=== PATIENT | male | born 1965 | race Asian ===

== ENCOUNTER → 2019-02-02 09:24 | Outpatient (CLI) | payer OTHER, SELFPAY ==
[2019-02-02 10:55] LABS: BUN Creatinine Ratio 16.7 (6-22); Blood Urea Nitrogen 15 mg/dL (9-20); Calcium 9.8 mg/dL (8.4-10.2); Carbon Dioxide 27 mmol/L (22-32); Chloride 103 mmol/L (98-107); Cholesterol 185 mg/dL (140-199); Estimated Glomerular Filt Rate > 60.0 mL/min (>60); Glucose 116 mg/dL (70-100); HDL Cholesterol 35 mg/dL (40-60); HEMOLYSIS < 15 (0-50); LDL Cholesterol Calculated 123 mg/dL (<100); Potassium 4.6 mmol/L (3.4-5.1); Sodium 138 mmol/L (137-145); Triglycerides 137 mg/dL (35-150)
== END ==
PROVIDERS: PCP Student in an Organized Health Care Education/Training Program; Visit Provider Student in an Organized Health Care Education/Training Program
DX: E78.2 Mixed hyperlipidemia (principal); I10 Essential (primary) hypertension; E55.9 Vitamin D deficiency, unspecified
CPT/HCPCS: 36415; 80048; 80061; 82306

== ENCOUNTER → 2020-02-09 09:34 | Outpatient (CLI) | payer OTHER, SELFPAY ==
[2020-02-09 13:14] LABS: BUN Creatinine Ratio 22.3 (6-22); Blood Urea Nitrogen 23 mg/dL (9-20); Calcium 9.8 mg/dL (8.4-10.2); Carbon Dioxide 28 mmol/L (22-32); Chloride 98 mmol/L (98-107); Estimated Glomerular Filt Rate > 60.0 mL/min (>60); Glucose 106 mg/dL (70-100); HEMOLYSIS < 15 (0-50); Potassium 4.8 mmol/L (3.4-5.1); Sodium 136 mmol/L (137-145)
[2020-02-09 13:43] LABS: Prostate Specific Antigen Scrn 6.95 ng/mL (0.1-4.0)
[2020-02-09 16:14] LABS: Vitamin D 25 Hydroxy (D3) 24.5 ng/mL (30.0-100.0)
== END ==
PROVIDERS: PCP Student in an Organized Health Care Education/Training Program; Referring Provider Student in an Organized Health Care Education/Training Program; Visit Provider Student in an Organized Health Care Education/Training Program
DX: I10 Essential (primary) hypertension (principal); Z12.5 Encounter for screening for malignant neoplasm of prostate; E55.9 Vitamin D deficiency, unspecified
CPT/HCPCS: 36415; 80048; 82306; G0103

== ENCOUNTER → 2020-04-04 10:52 | Outpatient (CLI) | payer OTHER, SELFPAY ==
[2020-04-04 12:29] LABS: Prostate Specific Antigen 4.52 ng/mL (0.10-4.00)
== END ==
PROVIDERS: PCP Student in an Organized Health Care Education/Training Program; Referring Provider Student in an Organized Health Care Education/Training Program; Visit Provider Student in an Organized Health Care Education/Training Program
DX: R97.20 Elevated prostate specific antigen [PSA] (principal)
CPT/HCPCS: 36415; 84153

== ENCOUNTER → 2021-04-30 14:05 | Outpatient (CLI) | payer OTHER, SELFPAY ==
[2021-04-30 16:36] LABS: BUN Creatinine Ratio 13.4 (6-22); Blood Urea Nitrogen 13 mg/dL (9-20); Calcium 9.8 mg/dL (8.4-10.2); Carbon Dioxide 25 mmol/L (22-32); Chloride 100 mmol/L (98-107); Estimated Glomerular Filt Rate > 60.0 mL/min (>60); Glucose 97 mg/dL (70-100); HEMOLYSIS < 15 (0-50); Potassium 4.3 mmol/L (3.4-5.1); Sodium 134 mmol/L (137-145)
[2021-04-30 16:47] LABS: Add Manual Diff / Slide Review NO; Basophils Absolute Auto 100 /uL (0-100); Basophils Percent Auto 0.6 % (0-2); Eosinophils Absolute Auto 200 /uL (0-450); Eosinophils Percent Auto 2.6 % (2-4); Hematocrit 44.8 % (41-53); Hemoglobin 15.4 g/dL (13.5-17.5); Lymphocytes Absolute Auto 2200 /uL (1100-4500); Lymphocytes Percent Auto 24.2 % (25-40); Mean Corpuscular HGB Conc 34.3 % (30-36); Mean Corpuscular Hemoglobin 28.2 PG (26-34); Mean Corpuscular Volume 82.3 fL (80-100); Monocytes Absolute Auto 600 /uL (0-900); Neutrophils Absolute Auto 6000 /uL (1500-7000); Neutrophils Percent Auto 65.6 % (50-75); Platelet Count 222 X10^3/uL (150-400); Red Blood Cell Count 5.44 X10^6/uL (4.5-5.9); Red Cell Distribution Width 13.8 % (11.6-14.8); White Blood Cell Count 9.2 X10^3/uL (4.5-11.0)
[2021-04-30 16:59] LABS: Vitamin D 25 Hydroxy (D3) 40.9 ng/mL (30.0-100.0)
[2021-04-30 17:08] LABS: Prostate Specific Antigen Scrn 5.68 ng/mL (0.1-4.0)
== END ==
PROVIDERS: PCP Student in an Organized Health Care Education/Training Program; Referring Provider Student in an Organized Health Care Education/Training Program; Visit Provider Student in an Organized Health Care Education/Training Program
DX: E55.9 Vitamin D deficiency, unspecified (principal); E78.2 Mixed hyperlipidemia; I10 Essential (primary) hypertension; R97.20 Elevated prostate specific antigen [PSA]; Z12.5 Encounter for screening for malignant neoplasm of prostate
CPT/HCPCS: 36415; 80048; 82306; 85025; G0103

== ENCOUNTER → 2021-05-30 14:02 | Outpatient (CLI) | payer OTHER, SELFPAY ==
[2021-05-31 10:36] LABS: Fecal Immunochemical Test Negative (Negative)
== END ==
PROVIDERS: PCP Student in an Organized Health Care Education/Training Program; Referring Provider Student in an Organized Health Care Education/Training Program; Visit Provider Student in an Organized Health Care Education/Training Program
DX: Z12.11 Encounter for screening for malignant neoplasm of colon (principal)
CPT/HCPCS: 82274

== ENCOUNTER → 2021-11-20 11:52 | Outpatient (CLI) | payer OTHER, SELFPAY ==
[2021-11-20 14:29] LABS: Prostate Specific Antigen 5.59 ng/mL (0.10-4.00)
== END ==
PROVIDERS: PCP Student in an Organized Health Care Education/Training Program; Referring Provider Student in an Organized Health Care Education/Training Program; Visit Provider Student in an Organized Health Care Education/Training Program
DX: R97.20 Elevated prostate specific antigen [PSA] (principal)
CPT/HCPCS: 36415; 84153

== ENCOUNTER → 2022-05-30 15:18 | Outpatient (CLI) | payer OTHER, SELFPAY ==
[2022-05-30 15:57] LABS: BUN Creatinine Ratio 16.5 (6-22); Blood Urea Nitrogen 16 mg/dL (9-20); Calcium 8.8 mg/dL (8.4-10.2); Carbon Dioxide 28 mmol/L (22-32); Chloride 97 mmol/L (98-107); Cholesterol 172 mg/dL (140-199); Estimated Glomerular Filt Rate > 60 mL/min (>60); Glucose 95 mg/dL (70-100); HDL Cholesterol 33 mg/dL (40-60); HEMOLYSIS 38 (0-50); LDL Cholesterol Calculated 113 mg/dL (<100); Potassium 3.7 mmol/L (3.4-5.1); Sodium 137 mmol/L (137-145); Triglycerides 131 mg/dL (35-150)
[2022-05-30 16:27] LABS: Prostate Specific Antigen 6.92 ng/mL (0.10-4.00)
== END ==
PROVIDERS: PCP Student in an Organized Health Care Education/Training Program; Referring Provider Student in an Organized Health Care Education/Training Program; Visit Provider Student in an Organized Health Care Education/Training Program
DX: E78.2 Mixed hyperlipidemia (principal); I10 Essential (primary) hypertension; R97.20 Elevated prostate specific antigen [PSA]
CPT/HCPCS: 36415; 80048; 80061; 84153

== ENCOUNTER → 2022-07-11 07:31 | Outpatient (CLI) | payer OTHER, SELFPAY ==
--- NOTE | 2022-07-11 07:33 | DI.RAD.S_ITS ---
PROCEDURE: XR KNEE RT 3V INDICATIONS: right knee pain TECHNIQUE: 3 views of the knee were acquired. COMPARISON: None. FINDINGS: Bones: No fractures or dislocations. No suspicious bony lesions. There is moderate to severe tricompartmental osteoarthritic type degenerative change involving the patient's right knee with patellofemoral joint being most severely affected. Soft tissues: No joint effusion. No suspicious soft tissue calcifications. IMPRESSION: Moderate to severe tricompartmental osteoarthritic degenerative change involving the right knee with patellofemoral joint most severely affected. Dictated by: Stuart Medeiros M.D. on 07/11/2022 at 8:22 Approved by: Stuart Medeiros M.D. on 07/11/2022 at 8:23
[2022-07-12 16:43] LABS: Fecal Immunochemical Test Negative (Negative)
== END ==
PROVIDERS: PCP Student in an Organized Health Care Education/Training Program; Referring Provider Student in an Organized Health Care Education/Training Program; Visit Provider Student in an Organized Health Care Education/Training Program
DX: M17.11 Unilateral primary osteoarthritis, right knee (principal); M25.561 Pain in right knee; Z12.11 Encounter for screening for malignant neoplasm of colon
CPT/HCPCS: 73562; 82274

== ENCOUNTER → 2023-03-28 09:58 | Outpatient (CLI) | payer OTHER, SELFPAY ==
[2023-03-28 10:59] LABS: Add Manual Diff / Slide Review NO; Basophils Absolute Auto 0 /uL (0-100); Basophils Percent Auto 0.6 % (0-2); Eosinophils Absolute Auto 200 /uL (0-450); Eosinophils Percent Auto 3.2 % (2-4); Hematocrit 43.9 % (41-53); Hemoglobin 14.6 g/dL (13.5-17.5); Lymphocytes Absolute Auto 1600 /uL (1100-4500); Lymphocytes Percent Auto 21.7 % (25-40); Mean Corpuscular HGB Conc 33.3 % (30-36); Mean Corpuscular Volume 83.8 fL (80-100); Monocytes Absolute Auto 400 /uL (0-900); Monocytes Percent Auto 5.5 % (3-14); Neutrophils Absolute Auto 5000 /uL (1500-7000); Platelet Count 246 X10^3/uL (150-400); Red Blood Cell Count 5.24 X10^6/uL (4.5-5.9); White Blood Cell Count 7.2 X10^3/uL (4.5-11.0)
[2023-03-28 11:05] LABS: Appearance Urine UA CLEAR; Bilirubin Urine UA NEGATIVE (NEGATIVE); Color Urine UA YELLOW; Glucose Urine UA NEGATIVE (Negative); Ketones Urine UA NEGATIVE (NEGATIVE); Leukocyte Esterase Urine UA NEGATIVE (NEGATIVE); Nitrite Urine UA NEGATIVE (Negative); Occult Blood Urine UA 1+ (Negative); Protein Urine UA NEGATIVE (Negative); Specific Gravity Urine UA 1.015 (1.000-1.035); Urobilinogen Urine UA 0.2 E.U./dL (0.2)
[2023-03-28 11:13] LABS: Bacteria Urine None Seen; RBC Urine 0-1/HPF (0-5/HPF); Squamous Epithelial Cell Urine None Seen (0-5/HPF); WBC Urine None Seen (0-5/HPF)
[2023-03-28 11:14] LABS: Culture Indicated Urine Cult Not Indicated
[2023-03-28 11:28] LABS: Alanine Aminotransferase 66 IU/L (<50); Albumin 4.3 g/dL (3.5-5.0); Albumin Globulin Ratio 1.2 (1.0-2.8); Alkaline Phosphatase 51 U/L (38-126); Aspartate Aminotransferase 49 IU/L (17-59); BUN Creatinine Ratio 16.3 (6-22); Bilirubin Total 0.8 mg/dL (0.2-1.3); Blood Urea Nitrogen 16 mg/dL (9-20); Calcium 9.5 mg/dL (8.4-10.2); Carbon Dioxide 28 mmol/L (22-32); Chloride 100 mmol/L (98-107); Estimated Glomerular Filt Rate > 60 mL/min (>60); Globulin 3.5 g/dL (1.7-4.1); Glucose 118 mg/dL (70-100); HEMOLYSIS < 15 (0-50); Potassium 3.8 mmol/L (3.4-5.1); Sodium 137 mmol/L (137-145); Total Protein 7.8 g/dL (6.3-8.2)
[2023-04-01 06:42] LABS: PSA Free % 16.9 % (.); PSA, Total 3.2 ng/mL (0.0-4.0)
== END ==
PROVIDERS: PCP Family Medicine; Referring Provider Family Medicine; Visit Provider Family Medicine
DX: R97.20 Elevated prostate specific antigen [PSA] (principal); I10 Essential (primary) hypertension; E78.2 Mixed hyperlipidemia
CPT/HCPCS: 36415; 80053; 81001; 84153; 84154; 85025

== ENCOUNTER → 2023-07-08 08:10 | Outpatient (CLI) | payer OTHER, SELFPAY ==
[2023-07-08 08:55] LABS: Add Manual Diff / Slide Review NO; Basophils Absolute Auto 0 /uL (0-100); Basophils Percent Auto 0.6 % (0-2); Eosinophils Absolute Auto 200 /uL (0-450); Eosinophils Percent Auto 2.2 % (2-4); Hematocrit 45.8 % (41-53); Hemoglobin 15.6 g/dL (13.5-17.5); Lymphocytes Absolute Auto 1400 /uL (1100-4500); Lymphocytes Percent Auto 17.1 % (25-40); Mean Corpuscular Hemoglobin 28.4 PG (26-34); Mean Corpuscular Volume 83.7 fL (80-100); Monocytes Absolute Auto 600 /uL (0-900); Monocytes Percent Auto 7.3 % (3-14); Neutrophils Absolute Auto 6100 /uL (1500-7000); Neutrophils Percent Auto 72.8 % (50-75); Platelet Count 251 X10^3/uL (150-400); Red Blood Cell Count 5.47 X10^6/uL (4.5-5.9); Red Cell Distribution Width 13.5 % (11.6-14.8); White Blood Cell Count 8.4 X10^3/uL (4.5-11.0)
[2023-07-08 09:05] LABS: BUN Creatinine Ratio 16.7 (6-22); Blood Urea Nitrogen 15 mg/dL (9-20); Carbon Dioxide 25 mmol/L (22-32); Chloride 101 mmol/L (98-107); Estimated Glomerular Filt Rate > 60 mL/min (>60); Glucose 140 mg/dL (70-100); HEMOLYSIS < 15 (0-50); Sodium 134 mmol/L (137-145)
[2023-07-08 09:06] LABS: Hemoglobin A1C% w Est Avg Glu 6.7 % (4.0-6.0)
== END ==
LOC: RESP 08:12
PROVIDERS: PCP Family Medicine; Referring Provider Orthopaedic Surgery Foot and Ankle Surgery; Visit Provider Orthopaedic Surgery Foot and Ankle Surgery
DX: Z01.818 Encounter for other preprocedural examination (principal); Z01.812 Encounter for preprocedural laboratory examination; R73.9 Hyperglycemia, unspecified
CPT/HCPCS: 36415; 80048; 83036; 85025; 93005

== ENCOUNTER → 2023-09-02 12:06 | Outpatient (CLI) | payer OTHER, SELFPAY ==
[2023-09-03 10:10] LABS: Fecal Immunochemical Test Positive (Negative)
== END ==
LOC: LAB 12:15
PROVIDERS: PCP Family Medicine; Referring Provider Family Medicine; Visit Provider Family Medicine
DX: Z12.11 Encounter for screening for malignant neoplasm of colon (principal)
CPT/HCPCS: 82274

== ENCOUNTER 2023-09-03 06:32 | Day surgery (SDC) | payer OTHER, SELFPAY ==
[2023-08-25 08:22] VITALS: BMI 37.1
[2023-09-03] VITALS (9 sets, daily range): BP systolic 97–138; BP diastolic 35–80; PULSE 73–91; RESP 10–19; TEMP 36.6–36.9; O2SAT 93–99; BMI 37.1
--- NOTE | 2023-09-03 06:00 | DI.RAD.S_ITS ---
PROCEDURE: XR KNEE RT 1TO2V INDICATIONS: TKA TECHNIQUE: 2 view(s) of the knee acquired. COMPARISON: [facility], , XR KNEE RT 3V, 07/11/2022, 7:29. FINDINGS: Bones: Patient is status post knee joint arthroplasty. Hardware components are in expected positions. Visualized bony structures are intact. Soft tissues: Overlying postoperative changes are noted. IMPRESSION: Expected immediate postoperative appearance, status post total right knee arthroplasty. Dictated by: Neel Carrera M.D. on 09/03/2023 at 11:41 Approved by: Neel Carrera M.D. on 09/03/2023 at 11:42
[2023-09-03] MEDS: CELECOXIB 200 MG CAPSULE 400 MG PO (07:07)
[2023-09-03] MEDS: LACTATED RINGERS 1,000 ML 42 ML IV ×2 (07:07→10:00)
[2023-09-03] MEDS: ACETAMINOPHEN 325 MG TABLET 975 MG PO (07:08)
--- NOTE | 2023-09-03 07:20 | SUR.OPER ---
Supine on padded OR bed. Pillow under head, arms secured on padded armboards <90 degree abduction. Safety belt across torso. Non-operative leg secured with tape over blanket over lower leg. Operative leg secured in DeMayo/Paul/Nathe positioner. Foam padded brace at thigh of operative leg.
--- NOTE | 2023-09-03 07:23 | PM.PREOP ---
Pre-operative Note Interval Note History & Physical reviewed/Exam performed by Physician: Yes Changes to H&P: No
--- NOTE | 2023-09-03 07:41 | PM.OP.1 ---
Operative Date/Time/Diagnoses Date of procedure: 09/03/23 Time of procedure: 08:10 Pre-op diagnosis: Right knee arthritis Post-op diagnosis: same Procedure & Clinicians Procedure: Right total knee arthroplasty [id number] Robotic assisted surgery Computer navigation assisted surgery. Same procedure as scheduled: Yes Indications: The patient has significant pain associated with osteoarthritis of the right knee. It is associated with morning stiffness. Pain interferes with daily normal function including ambulation standing and any activities that are weight-bearing. It interferes with sleep. There is crepitation with range of motion. There is marked joint line tenderness. X-rays show significant levels of osteoarthritis. Double attempted previous conservative treatment has been rendered. The patient has failed exercise program, medications and previous injections. Patient is indicated for total knee arthroplasty. The risks and benefits of the procedure have been discussed with the patient and given the opportunity to ask questions. The risks of surgery include but are not limited to infection, malunion, nonunion, persistence of pain, damage to nerves and blood vessels, posttraumatic arthritis, DVT, PE, cardiopulmonary complications and . The patient expressed a thorough understanding of the risks and benefits of surgery and has elected to proceed. Consent was signed. During the operation, the services of a physician surgical sales representative were medically indicated and necessary to provide the exposure of the operative site for the surgical procedure and to maintain the limb in a proper position to carry out the operation safely and efficiently. Without a qualified anesthetic assistant being present this would extended the operative procedure and made the procedure technically more difficult to perform. Surgeon: Lucy Rojas Sociocultural Anthropology Professor: Brijesh Wilson Anesthesia Type: Spinal and Peripheral nerve block Operative Notes Findings: End-stage tricompartmental knee arthritis right knee, prominent tibial tubercle from Dysart-Schlatter's Closure Type: primary Prosthetic devices, grafts, tissues, transplants, or devices: Rodriguez and Nephew journey 2 bCS total knee arthroplasty Femur Oxinium 7 Tibia 6 Poly 9 mm Patella 35 x 9 mm Estimated Blood Loss (mL): 100 Blood products transfused: none Tourniquet time (min): 120 Procedure in detail: Patient was seen in the preoperative area where the patient and site of surgery were identified in the operative knee was marked informed consent confirmed. This was the right knee. Patient received the appropriate preoperative antibiotics this was 2 g of Ancef. And other preoperative medications including tranexamic acid and was taken to the operating room placed on operating table in the supine position. Spinal anesthetic were administered. The operative extremity was then prepped and draped in the standard sterile fashion with a nonsterile tourniquet high on the thigh. Patient was placed on the green foam bolsters. A lateral post was placed at the level of the proximal thigh /trochanter area as a lateral post. Formal time-out procedure was performed confirming the patient's side and site of surgery and administration of appropriate preoperative antibiotics and implants were in the room accounted for. All were in agreement. Patient received a preoperative dose of tranexamic acid and then a 2nd dose at tourniquet release Patient was prepped and draped in the standard sterile fashion and the foot was placed into the leg hanson. This was taken into high flexion and the incision was marked out over the anterior knee to the level of the medial tubercle tubercle. The Esmarch was then used for exsanguination and the tourniquet was inflated to 250 mmHg. Was made through the skin and subcutaneous tissue in high flexion this was then brought down into 30? of flexion for the medial parapatellar arthrotomy. A marker pen was used to primo the arthrotomy site for later repair. Joint fluid was evacuated. The anterior osteophytes and soft tissues were removed. Routine medial release was initially made along the medial proximal tibia with Bovie. The patella was 1st cut using the saw sized and prepped and then subluxed throughout the case and protected. This patient was noted to have very large Dysart-Schlatter's lesion as well as extensive inferior osteophytes on the distal patella. The leg was then taken into extension and the patella was everted and the patella was cut to accommodate the patellar button. This was sized to a 35 mm button for a denies mm thickness to recreate the original dimensions of the patella. Poly was removed and the protector replaced and the patella was subluxed and the knee was taken back up into flexion and attention was returned to the femur. Then the rotational landmarks of Whitesides line and the trans epicondylar axis were marked on the femur with electrocautery. ACL and PCL were released. Then the Cori robotic pins were placed into the femur and tibia and the race set up. Landmarks were established and the robotic planning was commenced. Plan was developed and improved and adjusted as necessary to create a balanced knee. Plan was adjusted to a 2 mm balance and flexion and extension. Plan was satisfactory the bur was used to remove the distal femur. The initial bearing removed just a sliver of distal lateral femoral condyle and the knee was tested after tibial cut with the extension block and found to be tight. The balanced in flexion. Additional 2 mm were then taken off with the bur by adjusting the computer navigation robotic plan. Once this was complete and the extension block and flexion blocks checked and balanced and he was taken to extension local injection was injected to the posterior capsule on the medial side and the remainder of the menisci were excised. Then the 5 in 1 cutting block was applied complete the femur cuts. Attention was then turned to the tibia and the tibial resection was made in accordance with the robotic planning. As described above. Additional rongeur was used to clean up osteophytes around the medial and lateral tibia. Of note again was the prominent Venecia-Schlatter's lesion anteriorly. This was protected. The trials were placed. And the femoral notch was cut a standard fashion using Reamer then slap hammer. The knee was trialed and the checked. Knee was balanced in flexion extension. Range of motion 0-130 degrees was obtained. The rotation femoral trial was marked Bovie on the bone and checked with a long levi. The tibia was then finished with a drill and flange cut and then The trial implants were removed. Then in extension the posterior capsule was injected with a mixture of 40 mL of 0.25% Marcaine and 20 mL of Exparel care to avoid excessive injection posterior laterally. The remainder of this was saved for the capsule and subcutaneous tissue and placed during cement curing. The wound and bone was irrigated with pulsatile lavage. This was then dried with a sponge. The components were verified and opened and the cement was mixed. Cement was applied to the components and then to the bone then the tibia was cemented in place 1st followed by the femur then the patella. Excess cement was removed. With care looking around the back of the knee. Remainder of the injection was injected around the capsule. trial poly was placed back in the leg was placed into extension for the patellar cementing. After this was cured approximately 15 minutes later and the dilute Betadine solution was placed for at least 3 minutes in the wound this was then irrigated out and the final poly was placed. This was a 9 mm poly. The tourniquet was released hemostasis was achieved. There was noted to be a slight lateral tilt of the patella so a lateral release was performed with normal patellar tracking symmetric within the groove after this was completed. Final 1g of tranexamic acid was given IV at the time of tourniquet release. The capsule was closed with 1. Ethibond suture. Followed by a running Quill stitch. Subcutaneous layer was closed with 3-0 Vicryl suture. Skin was closed with a running V lock suture Stratafix Monocryl type suture and Dermabond. An Aquacel dressing was placed . An Blair wrap was applied. Anesthetic was terminated the patient was woken from anesthesia and taken to recovery room in good condition. There no immediate complications from this procedure. The patient will be maintained on a standard total knee replacement protocol with weight-bearing as tolerated. Complications: none Post-operative Condition: stable Disposition: PACU Plan for aftercare: Weightbear as tolerated. Immediate knee range of motion and standard postoperative knee therapy program. We will use aspirin 81 mg b.i.d. for DVT prophylaxis for 6 weeks postop. We will follow up in 2 weeks for a wound check with the physician anesthetic assistant and at 6 weeks with the surgeon.
[2023-09-03] MEDS: CEFAZOLIN 2 GM/100 ML PREMIX 100 ML IV (07:55)
[2023-09-03] MEDS: TRANEXAMIC ACID 1,000 MG VIAL 1000 MG INJ ×2 (08:00→10:34)
[2023-09-03] MEDS: BUPIVACAINE 0.25% (PF) 60 ML, EPINEPHrine 0.3 MG INJ (08:27)
[2023-09-03] MEDS: BUPIVACAINE LIPOSOME 266 MG/20 ML VIAL INJ (08:27)
[2023-09-03] MEDS: OXYCODONE IR 5 MG TABLET PO (11:41)
--- NOTE | 2023-09-03 13:18 | SUR.PHASEII ---
Pt dressed, resting in bed with knee elevated and ice on. SCD on. Eating lunch. Waiting for PT. at bedside.
--- NOTE | 2023-09-03 14:00 | PT.IIE ---
Current Diagnoses Unilateral primary osteoarthritis, right knee (09/03/23) Surgery Performed Operation Date: 09/03/23 07:45 Actual Procedures p Total Knee Arthroplasty - Robot(Right) - Lucy Rojas MD Surgical History (Last Updated 08/25/23 @ 09:08 by Saloni Coates RN) H/O vasectomy History of photorefractive keratectomy (PRK) Medical History (Last Updated 08/25/23 @ 09:13 by Saloni Coates RN) Arthritis History of COVID-19 (~2020) Hypertension (~2008) Knee pain Mixed hyperlipidemia Venecia-Schlatter's disease Shoulder pain (~2016) Sleep apnea (~2008) Tricompartment osteoarthritis of right knee Vitamin D insufficiency Physical Therapy Inpatient Evaluation/Re-Eval M1 PT/OT-IP Prior Functional Status Start: 09/03/23 15:27 Freq: NEEDED Status: Discharge Protocol: Document 09/03/23 14:00 AB (Rec: 09/03/23 15:40 AB [id number]) Medical Review Prior Functional Status Medical History Reviewed Yes Communication able to make needs known Mobility and Gait pt stated that he was independent with all mobilities and ambulation without AD Social History Household Members spouse,children Living Arrangements House Number of Floors (Floors) 3 or More Floors Number of Stairs To Enter/Railing? 6 steps B rails to enter the house 7+landing +7 steps R rail ascending to get to bedroom level; pt stated that he plans to stay on the main level for a few days Home Environment Standard Height Toilet,Walk in Shower Home Equipment Four Wheel Walker,Shower Seat with Backrest,Hand Held Shower Additional Social History Comment pt has his spouse and adult daughter to assist him if needed. M2 PT-IP Current Condition Start: 09/03/23 15:27 Freq: NEEDED Status: Discharge Protocol: Document 09/03/23 14:00 AB (Rec: 09/03/23 15:40 AB [id number]) Physical Therapy Current Condition Current Condition Evaluation Date 09/03/23 Treatment Diagnosis s/p R TKA; difficulty in walking Onset Date 09/03/23 M3 PT-IP Subjective Start: 09/03/23 15:27 Freq: NEEDED Status: Discharge Protocol: Document 09/03/23 14:00 AB (Rec: 09/03/23 15:40 AB [id number]) Subjective Physical Therapy Visit Type Type Initial Evaluation Visit Start Time 14:00 Visit Stop Time 15:15 Number of ROOF SLATER Visits 0 Physical Therapy Visit Comments Patient Comments agreeable to do PT Therapy Pain Assessment Pain When Pain Assessed At Rest Pain Present Pain Present Pain Reported Location right knee Intensity 4 Scale Used Numeric (0 - 10) Pain Management Techniques Distraction,Modification of Treatment,Re-positioning, Timing of Activity with Medications M4 PT-IP Mobility and Gait Start: 09/03/23 15:27 Freq: NEEDED Status: Discharge Protocol: Document 09/03/23 14:00 AB (Rec: 09/03/23 15:40 [id number]) PT-Bed Mobility Assessment Supine to Sit Supine to Sit Standby Assistance Sit to Supine Sit to Supine Standby Assistance PT-Transfer Assessment Sit to and From Stand Sit to and from Stand Contact Guard Assistance,1 Person Assistance,Use of Upper Extremities Equipment Transfer Assistive Device Gait Belt,Front Wheeled Walker ,4 Wheeled Walker Orthotic/Prosthetic Devices or Brace: No Transfers Transfer Destination Bed,Chair Transfer Technique ambulated Transfer Ability Level of Assist Contact Guard Assistance,1 Person Assistance,Use of Upper Extremities Comments Mobility Comments Received PT eval order from PACU and possible d/c home today. pt sitting on the chair and spouse in room obtained PLOF and home set up from pt. pt stated that he did not have pre-op PT and only has a 4WW at home to use. If needed, can borrow one from [employer] but not until tomorrow. post-op folder provided and reviewed contents to pt. reviewed HEP with pt. pt completed sit to stand from the chair CGA and ambulated to EOB using FWW CGA and cues for R quads activation. pt completed sit<>supine SBA. caregiver training conducted. educated pt's spouse on how to use safety belt and how to assist pt . spouse was able to put safety belt on pt. PT educated pt on how to use 4WW/ brakes management. spouse assisted pt with sit to stand from EOB CGA and ambulated pt in room ~ 40 ft using 4WW CGA. pt sat on w/c. pt then stated that he needs to use the toilet first. spouse assisted pt with sit to stand CGA and pt ambulated to the toilet using 4WW. spouse was able to assist pt with toileting needs. assisted pt to the stairs. Stair climbing training conducted. educated pt and spouse on how to do stairs. pt completed up/down steps using bilateral rails CGA. pt repeated holding on to R rail with B hands CGA to min A and cues. spouse was able to assist pt. assisted pt back to PACU unit. Pt and spouse without further concerns. Left pt with spouse and nurse. Gait Assessment Gait Gait Assistance Required: Contact Guard Assist Distance (Feet) 40 Able to Maintain Weight Bearing Status Yes During Gait Assistive Devices Assistive Device Gait Belt,Front Wheeled Walker ,4 Wheeled Walker Orthotic/Prosthetic Devices or Brace: No Gait Deviations General Gait Pattern Antalgic,Decreased Stride Length,Decreased Feet Clearance,Step-to Gait Factors Limiting Gait Function Factors Limiting Gait Function Decreased Activity Tolerance, Decreased Strength,Limited Range of Motion,Pain,Poor Balance,Poor Safety Awareness Stair Climbing Assessment Evaluation Level of Assist On Stairs Contact Guard Assistance, Minimal Assistance Devices Stair Climbing Assistive Devices Left Railing,Right Railing Technique/Endurance Stair Climbing Direction Ascend and Descend Stair Climbing Technique Step to Step Number of Steps Climbed 3 Query Text: Stair Climbing Set # Repetitions (reps) 2 PT-Balance Assessment Sitting Balance and Reactions Static Sitting Balance Ability Normal Dynamic Sitting Balance Ability Good Standing Balance and Reactions Static Standing Balance Ability Good Dynamic Standing Balance Ability Fair Device Used FWW M5 PT-IP Objective Assessments Start: 09/03/23 15:27 Freq: NEEDED Status: Discharge Protocol: Document 09/03/23 14:00 AB (Rec: 09/03/23 15:40 AB [id number]) Orientation Orientation/Cognition Level of Alertness Alert Orientation Name,Place,Situation Language Function Ability No Deficits Noted Safety Awareness Decreased Safety Awareness Memory Description No Deficits Noted Gross Range of Motion Lower Extremity ROM Assessment Right Impaired Impairments R knee flexion: ~ 90 deg R knee extension: ~ 15 deg less to 0 Strength Lower Extremity Strength Assessment Right Impaired Hip 3+/5 Knee 3+/5 Sensation Assessment Sensation Gross Sensation WNL Muscle Tone Muscle Tone WNL Yes M6 PT-IP Treatment Start: 09/03/23 15:27 Freq: NEEDED Status: Discharge Protocol: Document 09/03/23 14:00 AB (Rec: 09/03/23 15:40 AB [id number]) Physical Therapy Treatment Exercises Exercises Heel Slides Education Education Provided Precautions,Weight Bearing Status,Post-Op Packet,Safety M7 PT-IP Assessment and Plan Start: 09/03/23 15:27 Freq: NEEDED Status: Discharge Protocol: Document 09/03/23 14:00 AB (Rec: 09/03/23 15:40 AB [id number]) PT Summary Assessment and Plan Potential Status of Condition at Evaluation Stable Summary Impairments Pain,ROM,Strength,Balance, Coordination,Sensation,Tone, Cognition,Bed Mobility, Transfers,Gait,Activity Tolerance Assessment Summary pt is a 58 y/o M s/p R TKA POD 0. pt is WBAT on RLE. pt requiring CGA to min A with mobility using FWW. caregiver training conducted and spouse was able to assist pt safely with mobility. pt plans to go home today. pt has outpt PT set up. pt may go home when medically stable. Goals Bed Mobility Goal Independent Transfer Goal Independent,Four Wheeled Walker Gait Goal Independent,Four Wheel Walker Gait Distance 300 Other Goals up/down 6 steps B rail mod I up/down 15 steps R rail SBA Days to Meet Goals 5 Frequency of Treatment Frequency Of Treatment Twice a Day Treatment Plan Physical Therapy Treatment Plan Bed Mobility Training,Transfer Training,Gait Training, Therapeutic Exercise,Balance Retraining,Post Op Education, Discharge Planning,Hot or Cold Pack,Neuromuscular Re-ed, Coordination Retraining,Manual Therapy Weight Bearing Status Weight Bearing Status Weight Bear as Tolerated Allowed Weight Bearing Amount (enter % RLE WBAT or #) (%) Recommendations To Nursing Amount of Assist Needed 1 Person Assist Discharge Recommendations PT Discharge Recommendations Home with Assistance, Outpatient PT Transportation Needs at Discharge Private Vehicle
--- NOTE | 2023-09-03 15:05 | SUR.PREOP ---
Time out 0733. Block start time 0735 . Monitoring initiated and maintained throughout procedure. Oxygen and medications given by anesthesiologist. Patient remained stable throughout procedure, no adverse reactions noted. Block end time 0740.
== END 2023-09-03 15:31 | disposition home or self-care (01) ==
PROVIDERS: PCP Family Medicine; Referring Provider Orthopaedic Surgery Foot and Ankle Surgery; Visit Provider Orthopaedic Surgery Foot and Ankle Surgery
PROC: 0SRC0JZ Replacement of Right Knee Joint with Synthetic Substitute, Open Approach (ICD-10-PCS; CPT 27447; principal; 2023-09-03 07:45)
DX: M17.11 Unilateral primary osteoarthritis, right knee (principal); G47.30 Sleep apnea, unspecified; G89.18 Other acute postprocedural pain; M25.761 Osteophyte, right knee
CPT/HCPCS: 27447; 20985; 64450; 73560; 97161; 97530; C1776; C9290; J0171; J0690; J1100; J1170; J2405; J2704; J3010

== ENCOUNTER → 2024-05-17 10:02 | Outpatient (CLI) | payer OTHER, SELFPAY ==
[2024-05-17 10:40] LABS: Add Manual Diff / Slide Review NO; Basophils Absolute Auto 100 /uL (0-100); Eosinophils Absolute Auto 200 /uL (0-450); Eosinophils Percent Auto 3.2 % (2-4); Hematocrit 44.3 % (41-53); Lymphocytes Absolute Auto 1500 /uL (1100-4500); Lymphocytes Percent Auto 20.4 % (25-40); Mean Corpuscular HGB Conc 33.9 % (30-36); Mean Corpuscular Hemoglobin 28.5 PG (26-34); Mean Corpuscular Volume 84.1 fL (80-100); Monocytes Absolute Auto 400 /uL (0-900); Monocytes Percent Auto 5.9 % (3-14); Neutrophils Absolute Auto 5300 /uL (1500-7000); Neutrophils Percent Auto 69.5 % (50-75); Platelet Count 270 X10^3/uL (150-400); Red Blood Cell Count 5.27 X10^6/uL (4.5-5.9); Red Cell Distribution Width 14.3 % (11.6-14.8); White Blood Cell Count 7.6 X10^3/uL (4.5-11.0)
[2024-05-17 10:46] LABS: Hemoglobin A1C% w Est Avg Glu 8.3 % (4.0-6.0)
[2024-05-17 10:59] LABS: Alanine Aminotransferase 84 IU/L (<50); Albumin 4.7 g/dL (3.5-5.0); Albumin Globulin Ratio 1.4 (1.0-2.8); Alkaline Phosphatase 71 U/L (38-126); Aspartate Aminotransferase 75 IU/L (17-59); BUN Creatinine Ratio 17.3 (6-22); Bilirubin Total 0.7 mg/dL (0.2-1.3); Blood Urea Nitrogen 19 mg/dL (9-20); Calcium 9.8 mg/dL (8.4-10.2); Carbon Dioxide 25 mmol/L (22-32); Chloride 103 mmol/L (98-107); Cholesterol 216 mg/dL (140-199); Estimated Glomerular Filt Rate > 60 mL/min (>60); Globulin 3.3 g/dL (1.7-4.1); Glucose 167 mg/dL (70-100); HDL Cholesterol 41 mg/dL (40-60); HEMOLYSIS < 15 (0-50); LDL Cholesterol Calculated 137 mg/dL (<100); Potassium 4.5 mmol/L (3.4-5.1); Sodium 137 mmol/L (137-145); Triglycerides 191 mg/dL (35-150); Uric Acid 8.5 mg/dL (3.5-8.5)
[2024-05-18 07:08] LABS: PSA Free % 16.5 % (.); PSA, Total 6.5 ng/mL (0.0-4.0)
== END ==
PROVIDERS: PCP Family Medicine; Referring Provider Family Medicine; Visit Provider Family Medicine
DX: Z00.00 Encounter for general adult medical examination without abnormal findings (principal); R97.20 Elevated prostate specific antigen [PSA]; I10 Essential (primary) hypertension; E78.2 Mixed hyperlipidemia
CPT/HCPCS: 36415; 80053; 80061; 83036; 84153; 84154; 84550; 85025

== ENCOUNTER → 2024-08-03 15:59 | Outpatient (CLI) | payer OTHER, SELFPAY ==
--- NOTE | 2024-08-03 17:14 | DIAB.MNT ---
Initial Diabetes Medical Nutrition Therapy Assessment Name: Preston Young (Miguel) Date: 08/03/24 Time: 405-505p Dx: Type II Diabetes Provider: Toni Preferred Learning Style: Reading, Listening, Hands on, Watching Miguel presents for initial DM visit with spouse, [place]. Endorses rich FH of Dm with both parents and sisters. Newly diagnosed with T2DM. Endorses dieting on/off over the last 4 years. Succeeded in 30# wt loss in the past with diet changes and phentermine. Finds competition motivating. Wants to make diet changes to reduce hgA1c. Seems very motivated. Change in work commute has impacted food intake. More cooking when home, which he felt was not helpful, but less eating overall now with commute to [place] results in larger portions when eating. taking Metformin without any SE, takes morning dose without food. Does not prefer water, feels he gets heartburn from it; however may just be that he drinks water when very full. Denies any reflux when drinking water on empty stomach during workout. Diet Recall: 830a: nothing or omelette 1130-1p: slice pizza from [employer] (75g CHO) OR ham and cheese sandwich 6p: 2 enchiladas with 2 bread rolls OR protein, veggies and carb 1/2-1.5c 8p: nothing or 1c vanilla ice cream water 4-16oz sf tea/lemonade 2-3 diet sodas Anthropometrics: Ht: 66 Wt: 241.5# 05/2023 Physical Activity: bike x 25 min 3x per week, weights 30 min 3x per week, walk dog 15 min per day Self-Monitoring Blood Glucose: None, no supplies. Has rx per EMR. Diabetes Medications: 500mg Metformin BID Pertinent Labs: HgA1c: 6.7% 06/2023 8.3% 05/2024 Past Medical History: (Last Reviewed 05/14/24 @ 18:36 by Aayush Muñoz DO) Arthritis History of COVID-19 (~2020) Hypertension (~2008) Knee pain Mixed hyperlipidemia [place]-Schlatter's disease Knees Positive FIT (fecal immunochemical test) Shoulder pain (~2016) Sleep apnea (~2008) CPAP Tricompartment osteoarthritis of right knee Type 2 diabetes mellitus Vitamin D insufficiency Well adult exam Nutrition Rx: Carbohydrates: Meal:45g Snack:15-30g Nutrition Diagnosis: - Excessive CHO intake r/t nutrition knowledge deficit and long periods of fasting resulting in larger portions aeb pt report and diet recall - Inadequate fluid intake r/t limited water intake aeb pt report and diet recall - Self monitoring deficit r/t no supplies for SMBG aeb pt report Intervention: This participant was very receptive. Provided appropriate educational handouts. Discussed the following topics: Completed intake assessment. Discussed barriers to care. Pathophysiology of T2DM HgA1c, its correlation to blood glucose numbers, and rationale for goal Importance of self-monitoring, how often, and when to check. Suggested checking at different times to evaluate meals Plate Method, impact of macronutrients on blood sugar, meal timing, carbohydrate counting, pairing macronutrients and spreading out carbohydrates for better blood glucose management Recommended servings for carbohydrates at meals and snacks Brainstormed appropriate meal plan based on food preferences Physical activity Hydration How to check BG and provided handout Created SMART goals for patient self-care and success. Goals: Get a new water bottle Bring lunch to work Add morning shake and cheese Check on SMBG supplies at pharmacy Follow-up: PARAMJIT MANZO follow-up in 2-3 weeks Jigna Mccabe RDN, ANAIS Certified Diabetes Care and Fire Protection Specialist P: [phone] Thank you for this referral
== END ==
LOC: DIET 15:59
PROVIDERS: PCP Family Medicine; Referring Provider Family Medicine
DX: E11.9 Type 2 diabetes mellitus without complications (principal); Z71.3 Dietary counseling and surveillance; Z83.3 Family history of diabetes mellitus; Z79.84 Long term (current) use of oral hypoglycemic drugs
CPT/HCPCS: 97802

== ENCOUNTER → 2024-09-13 16:13 | Outpatient (CLI) | payer OTHER, SELFPAY ==
[2024-09-13 17:05] LABS: Hemoglobin A1C% w Est Avg Glu 6.9 % (4.0-6.0)
[2024-09-13 17:19] LABS: Alanine Aminotransferase 61 IU/L (<50); Albumin 4.5 g/dL (3.5-5.0); Albumin Globulin Ratio 1.4 (1.0-2.8); Alkaline Phosphatase 66 U/L (38-126); Aspartate Aminotransferase 48 IU/L (17-59); BUN Creatinine Ratio 15.4 (6-22); Bilirubin Total 0.6 mg/dL (0.2-1.3); Blood Urea Nitrogen 18 mg/dL (9-20); Calcium 9.7 mg/dL (8.4-10.2); Carbon Dioxide 21 mmol/L (22-32); Chloride 106 mmol/L (98-107); Estimated Glomerular Filt Rate > 60 mL/min (>60); Globulin 3.2 g/dL (1.7-4.1); Glucose 176 mg/dL (70-99); HEMOLYSIS < 15 (0-50); Potassium 3.9 mmol/L (3.4-5.1); Sodium 140 mmol/L (137-145); Total Protein 7.7 g/dL (6.3-8.2)
[2024-09-15 07:09] LABS: PSA Free % 17.5 % (.); PSA, Total 6.4 ng/mL (0.0-4.0)
== END ==
LOC: LAB 16:14
PROVIDERS: PCP Family Medicine; Referring Provider Family Medicine; Visit Provider Family Medicine
DX: R97.20 Elevated prostate specific antigen [PSA] (principal); I10 Essential (primary) hypertension; E11.9 Type 2 diabetes mellitus without complications
CPT/HCPCS: 36415; 80053; 83036; 84153; 84154

== ENCOUNTER → 2024-09-29 15:52 | Outpatient (CLI) | payer OTHER, SELFPAY ==
--- NOTE | 2024-10-08 08:55 | DIAB.FU ---
Follow-up Diabetes Education Assessment Name: Preston Young (Miguel) Date: 09/29/24 Time: 4-430p Dx: Type II Diabetes Miguel presents for DM follow-up. Reports plans to start Semaglutide. Needs review of injection technique, SE, and action. RD messaged PCP workgroup about prior auth for Semaglutide. BG improved since last visit, though FBG are still above target. HgA1c improved and <7% this month. Reports helping with checking his feet daily. No concerns at this time. Endorses higher pc readings with higher CHO intake, specifically >1c rice. Has increased Metformin per PCP recs to 1000mg BID Has a trip to [facility] in October. Anthropometrics: Ht: 66 Wt: 237.5# 09/2024 241.5# 05/2023 Physical Activity: bike x 25 min 3x per week, weights 30 min 3x per week, walk dog 20 min per day at 530p Self-Monitoring Blood Glucose: All FBG above goal. 1-2 hour pc dinner readings 06/17 elevated. Today: Date Pre Post Pre Post Pre Post notes 09/23 150 168 09/24 148 220 09/25 137 200 09/26 150 131 09/27 139 180 09/28 162 200 09/29 147 Last Visit: Date Pre Post Pre Post Pre Post notes 08/18 170 181 08/19 163 142 08/20 162 155 08/21 155 196 08/22 159 188 08/23 164 209 08/24 152 Diabetes Medications: 1000mg Metformin BID 0.25-0.5mg Semaglutide weekly -- not started yet Pertinent Labs: HgA1c: 6.7% 06/2023 8.3% 05/2024 6.9% 09/2024 Past Medical History: (Last Reviewed 05/14/24 @ 18:36 by Aayush Muñoz DO) Arthritis History of COVID-19 (~2020) Hypertension (~2008) Knee pain Mixed hyperlipidemia [place]-Schlatter's disease KneesPositive FIT (fecal immunochemical test) Shoulder pain (~2016) Sleep apnea (~2008) CPAPTricompartment osteoarthritis of right knee Type 2 diabetes mellitus Vitamin D insufficiency Well adult exam Intervention: This participant was very receptive. Provided appropriate educational handouts. Discussed the following topics: Semaglutide injection technique, SE, precautions, and action, return demo Medication management hgA1c goals and trends BG goals Carb portion recs Created SMART goals for patient self-care and success. 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 Jigna Mccabe RDN, ANAIS Certified Diabetes Care and Lead Care Manager P: [phone] Thank you for this referral
== END ==
LOC: DIET 15:53
PROVIDERS: PCP Family Medicine
DX: E11.9 Type 2 diabetes mellitus without complications (principal); Z79.84 Long term (current) use of oral hypoglycemic drugs; Z71.3 Dietary counseling and surveillance
CPT/HCPCS: G0108

== ENCOUNTER → 2024-11-16 15:47 | Outpatient (CLI) | payer OTHER, SELFPAY ==
--- NOTE | 2024-12-28 10:43 | DIAB.MNTFU ---
Follow-up Diabetes Medical Nutrition Therapy Assessment Name: Preston Young (Miguel) Date: 11/16/24 Time: 4-435p Dx: Type II Diabetes Miguel presents for DM follow-up, accompanied by his . Reports he has not started Ozempic yet. States he is waiting on pharmacy. Needs review of injection technique. Continues to work on diet and portions. Reports plans to start Semaglutide. Needs review of injection technique, SE, and action. RD messaged PCP workgroup about prior auth for Semaglutide. Diet Recall: 6am: bagel and cream cheese OR toast with jam and coffee with sf creamer 1130a: slice of pizza once per week OR egg drop soup x 2 OR sandwich 6p: chx wrap OR steak and 1/2c potatoes OR protein with rice x 1.5 c 930p: 1c vanilla ice cream +/- fruit water sf or diet beverages States he notices higher BG with rice, which does seem to be his higher CHO portion meal. Wearing protection on feet in the house Due for eye appt Anthropometrics: Ht: 66 Wt: 237.5# 09/2024 241.5# 05/2023 Physical Activity: bike x 25 min 3x per week, weights 30 min 3x per week, walk dog 20 min per day at 530p Self-Monitoring Blood Glucose: All FBG above goal. 1-2 hour pc dinner readings 2/6 elevated. Would certainly benefit from start of GLP1. Today: Date Pre Post Pre Post Pre Post notes 11/10 160 200 11/11 148 165 8/1 150 180 8/2 150 180 8/3 136 156 8/4 157 185 8/5 146 124 Last Visit: Date Pre Post Pre Post Pre Post notes 09/23 150 168 09/24 148 220 14 137 200 15 150 131 16 139 180 09/28 162 200 09/29 147 Diabetes Medications: 1000mg Metformin BID 0.25-0.5mg Semaglutide weekly -- not started yet Pertinent Labs: HgA1c: 6.7% 06/2023 8.3% 05/2024 6.9% 09/2024 Past Medical History: (Last Reviewed 05/14/24 @ 18:36 by Aayush Muñoz DO)Arthritis History of COVID-19 (~2020) Hypertension (~2008) Knee pain Mixed hyperlipidemia [place]-Schlatter's disease KneesPositive FIT (fecal immunochemical test) Shoulder pain (~2016) Sleep apnea (~2008) CPAPTricompartment osteoarthritis of right knee Type 2 diabetes mellitus Vitamin D insufficiency Well adult exam Nutrition Rx: Carbohydrates: Meal:45gSnack:15-30g Nutrition Diagnosis: - Excessive CHO intake r/t nutrition knowledge deficit regarding rice portion/CHO aeb pt report and diet recall Intervention: This participant was very receptive. Provided appropriate educational handouts. Discussed the following topics: Semaglutide injection technique, SE, precautions, and action, return demo Medication management: GLP1 types and action, troubleshooting access CHO in rice and other foods Rec portions for CHO BG monitoring Created SMART goals for patient self-care and success. 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 RD did offer sooner f/u, but pt would like to f/u in a few months. Jigna Mccabe, PARAMJIT, [facility] Certified Diabetes Care and Manager Research And Development P: [phone] Thank you for this referral
== END ==
PROVIDERS: PCP Family Medicine; Referring Provider Family Medicine
DX: E11.9 Type 2 diabetes mellitus without complications (principal); Z71.3 Dietary counseling and surveillance; Z79.84 Long term (current) use of oral hypoglycemic drugs
CPT/HCPCS: 97803

== ENCOUNTER → 2025-02-16 08:52 | Outpatient (CLI) | payer OTHER, SELFPAY ==
--- NOTE | 2025-03-24 17:26 | DIAB.MNTFU ---
Follow-up Diabetes Medical Nutrition Therapy Assessment Name: Preston Young (Miguel) Date: 02/16/25 Time: 905-201a Dx: Type II Diabetes Miguel presents for DM follow-up. Reports he restarted Trulicity 4 weeks ago. Denies rotating injection sites. Reviewed this today. At the time of this visit, did not have PCP visit scheduled. Diet Recall: 8am: bagel and cream cheese and coffee with sf creamer 12p: left over pasta or meat or soup sn: cucumbers or nothing 6p: pasta x 1.5c with meat and veg OR meat and rice c 1.5c with veg more candy lately from Halloween no desserts lately otherwise. Anthropometrics: Ht: 66 Wt: 235# today 02/2025 237.5# 09/2024 241.5# 05/2023 Physical Activity: bike x 25 min 3x per week, weights 30 min 3x per week, walk dog 20 min per day at 530p Self-Monitoring Blood Glucose: All FBG above goal. May benefit from increased Glp1 dosage. Today: Date Pre Post Pre Post Pre Post notes 02/10 151 02/11 162 02/12 150 11/2 172 02/14 165 11 167 02/16 158 Last Visit: Date Pre Post Pre Post Pre Post notes 11/10 160 200 11/11 148 165 11/12 150 180 /2 150 180 11/14 136 156 11/15 157 185 / 146 124 Diabetes Medications: 1000mg Metformin BID 0.25-0.5mg Semaglutide weekly -- not started yet--- d/c 0.75mg Trulicity Pertinent Labs: HgA1c: 6.7% 06/2023 8.3% 05/2024 6.9% 09/2024 Past Medical History: (Last Reviewed 05/14/24 @ 18:36 by Aayush Muñoz DO)Arthritis History of COVID-19 (~2020) Hypertension (~2008) Knee pain Mixed hyperlipidemia [place]-Schlatter's disease KneesPositive FIT (fecal immunochemical test) Shoulder pain (~2016) Sleep apnea (~2008) CPAPTricompartment osteoarthritis of right knee Type 2 diabetes mellitus Vitamin D insufficiency Well adult exam Nutrition Rx: Carbohydrates: Meal:45gSnack:15-30g Nutrition Diagnosis: - Excessive CHO intake r/t stage of change contemplative aeb pt report and diet recall Intervention: This participant was very receptive. Provided appropriate educational handouts. Discussed the following topics: GLP1 injection technique and rotating sites CHO in rice and other foods Rec portions for CHO Encouraged PCP follow-up Avoiding simple CHO Created SMART goals for patient self-care and success. Goals: Limit rice to 1c- in progress Make eye appt- not met Ask pharmacy about PA for GLP1- met Can check BG 1-2 x per day- met Switch to brown rice- new Rotate injection sites- new schedule with PCP- new Follow-up: PARAMJIT MANZO follow-up in 4-5 weeks Jigna Mccabe RDN, ANAIS Certified Diabetes Care and Cellar Hand P: [phone] Thank you for this referral
== END ==
PROVIDERS: PCP Family Medicine; Referring Provider Family Medicine
DX: E11.9 Type 2 diabetes mellitus without complications (principal); Z71.3 Dietary counseling and surveillance; Z79.84 Long term (current) use of oral hypoglycemic drugs; Z79.85 Long-term (current) use of injectable non-insulin antidiabetic drugs
CPT/HCPCS: 97803

== ENCOUNTER → 2025-03-07 09:02 | Outpatient (CLI) | payer OTHER, SELFPAY ==
[2025-03-07 10:33] LABS: Hemoglobin A1C% w Est Avg Glu 7.2 % (4.0-6.0)
[2025-03-07 10:59] LABS: Alanine Aminotransferase 64 IU/L (<50); Albumin 4.7 g/dL (3.5-5.0); Albumin Globulin Ratio 1.4 (1.0-2.8); Alkaline Phosphatase 65 U/L (38-126); Blood Urea Nitrogen 16 mg/dL (9-20); Calcium 9.7 mg/dL (8.4-10.2); Carbon Dioxide 22 mmol/L (22-32); Chloride 104 mmol/L (98-107); Estimated Glomerular Filt Rate > 60 mL/min (>60); Globulin 3.3 g/dL (1.7-4.1); Glucose 151 mg/dL (70-99); HEMOLYSIS < 15 (0-50); Potassium 4.4 mmol/L (3.4-5.1); Sodium 139 mmol/L (137-145); Total Protein 8.0 g/dL (6.3-8.2)
== END ==
PROVIDERS: PCP Family Medicine; Referring Provider Family Medicine; Visit Provider Family Medicine
DX: E87.5 Hyperkalemia (principal); E11.9 Type 2 diabetes mellitus without complications
CPT/HCPCS: 36415; 80053; 83036

== ENCOUNTER → 2025-04-01 08:40 | Outpatient (CLI) | payer OTHER, SELFPAY ==
--- NOTE | 2025-04-01 08:47 | DIAB.MNTFU ---
Follow-up Diabetes Medical Nutrition Therapy Assessment Name: Preston Young (Miguel) Date: 04/01/25 Time: 9-940a Dx: Type II Diabetes Miguel presents for Dm follow-up visit. Increased hgA1c from 6.9% to 7.2% recently. PCP increased Trulicity to 1.5mg. Tried brown rice. Family did not prefer it. bought small ice cream bowls for him, which helps with portions. Has noticed increased feeling of fullness with higher dose of GLP1. Endorses difficulty with not finishing food on plate when eating out. Likes salads, but lately eating out has been higher CHO options. Travels for work Jan to May most years. Two more years until intermediate. During traveling, often skipping meals and eating larger portions. Snacks on trip included chips and lunchables. just back from traveling last night and most FBG are above goal. When not traveling they are lower by 20-30 points. Completed eye exam. No concerns. Worries about cataracts and glaucoma due to FH of this with mother with T2Dm. Less dessert lately. Some candy in the house due to holidays. Anthropometrics: Ht: 66 Wt: 243# 03/2025 PCP 235# today 02/2025 237.5# 09/2024 241.5# 05/2023 Physical Activity: Less working out while traveling. Using hotel gym, cardio 20-30 mins. Treadmill x 30 min 5-7x per week, weights 5 min, walk dog 20 min per day at 530p Self-Monitoring Blood Glucose: All recent FBG elevated. Today: Date Pre Post Pre Post Pre Post notes 03/26 178 03/27 155 03/28 171 16 162 03/30 150 03/31 151 04/01 160 Last Visit: Date Pre Post Pre Post Pre Post notes 02/10 151 02/11 162 02/12 150 02/13 172 02/14 165 02/15 167 02/16 158 Diabetes Medications: 1000mg Metformin BID 1.5mg Trulicity Pertinent Labs: HgA1c: 6.7% 06/2023 8.3% 05/2024 6.9% 09/2024 7.2% 02/2025 Past Medical History: (Last Reviewed 05/14/24 @ 18:36 by Aayush Muñoz DO)Arthritis History of COVID-19 (~2020) Hypertension (~2008) Knee pain Mixed hyperlipidemia [place]-Schlatter's disease KneesPositive FIT (fecal immunochemical test) Shoulder pain (~2016) Sleep apnea (~2008) CPAPTricompartment osteoarthritis of right knee Type 2 diabetes mellitus Vitamin D insufficiency Well adult exam Nutrition Rx: Carbohydrates: Meal:45gSnack:15-30g Nutrition Diagnosis: - Excessive CHO intake r/t traveling food choices aeb pt report and BG Intervention: This participant was very receptive. Provided appropriate educational handouts. Discussed the following topics: Review of CHO portions Eating out strategies Lower CHO snack ideas for trips Avoiding simple CHO Impact of higher BG ADA rec for hgA1c <7% and rationale Created SMART goals for patient self-care and success. Goals: Switch to brown rice- met Rotate injection sites- met schedule with PCP- met Choose salads when eating out- new Pack low CHO snacks on trips- new Avoid candy- new Follow-up: PARAMJIT MANZO follow-up in 6 months per pt req due to work traveling. Jigna Mccabe RDN, ALVAES Certified Diabetes Care and Continuous [employer] Miner P: [phone] Thank you for this referral
== END ==
LOC: DIET 08:41
PROVIDERS: PCP Family Medicine
DX: E11.9 Type 2 diabetes mellitus without complications (principal); Z71.3 Dietary counseling and surveillance; Z79.84 Long term (current) use of oral hypoglycemic drugs; Z79.85 Long-term (current) use of injectable non-insulin antidiabetic drugs
CPT/HCPCS: 97803